=== PATIENT | male | born 2000 | race Two or more races ===

== ENCOUNTER 2021-10-26 10:21 | Emergency (ER) | payer MEDICAID ==
[~2021-10-26] VITALS: Ht 167.6 cm; Wt 100.0 kg
[2021-10-26 10:43] VITALS: BP 123/88
== END 2021-10-26 11:36 | disposition left against medical advice (07) ==
LOC: ER 11:10
DX: M79.18 Myalgia, other site (principal); R05.9 Cough, unspecified; R51.9 Headache, unspecified; Z20.822 Contact with and (suspected) exposure to COVID-19
CPT/HCPCS: 99281